=== PATIENT | male | born 1950 | race African-American/Black ===

== ENCOUNTER 2024-08-30 18:41 | Inpatient (IN) | payer MEDICARE, MEDICAID ==
[~2024-08-30] VITALS: Ht 167.6 cm; Wt 66.7 kg
[~2024-08-30 18:41] MED LIST: BUME2TAB34 PO; CARV12.545 PO; DIGO125T PO; EMPA25TA PO; GABA-1180 PO; ROSU20CA PO; SACU1TAB PO; TAMSULOSIN PO
[2024-08-30 19:18] LABS: BASOPHILS % 0.5 % (0.0-2.0); EOSINOPHILS % 0.1 % (0.0-5.0); HEMATOCRIT. 44.6 % (42.0-52.0); HEMOGLOBIN. 14.6 g/dL (14.0-18.0); LYMPHOCYTES % 17.6 % (20.0-50.0); MEAN CORPUSCULAR HEMOGLOBIN 28.1 pg (28.0-32.0); MEAN CORPUSCULAR HGB CONC 32.7 g/dL (31.0-37.0); MEAN CORPUSCULAR VOLUME 85.9 fL (80.0-94.0); MONOCYTES % 7.4 % (2.0-8.0); NEUTROPHILS % 74.4 % (40.0-76.0); PLATELET 160 x1000/uL (130-400); RED BLOOD CELL COUNT 5.19 mill/uL (4.7-6.1); RED CELL DISTRIBUTION WIDTH 16.5 % (11.6-14.6)
[2024-08-30 19:24] LABS: CALCIUM 9.9 mg/dL (8.7-10.4); CARBON DIOXIDE 16 mEq/L (21-32); CHLORIDE 105 mEq/L (98-107); SODIUM 128 mEq/L (136-145)
[2024-08-30 19:26] LABS: POTASSIUM 6.8 mEq/L (3.5-5.1)
[2024-08-30 19:27] LABS: INR 1.3; PROTHROMBIN TIME 13.4 sec (9.6-11.0)
[2024-08-30 19:29] LABS: GLUCOSE 147 mg/dL (70-105)
[2024-08-30 19:30] LABS: UREA NITROGEN BLOOD 79 mg/dL (9-23)
[2024-08-30 19:31] LABS: ALANINE AMINOTRANSFERASE 51 IU/L (10-49); ALBUMIN 4.3 g/dL (3.2-4.8); ASPARTATE AMINOTRANSFERASE 26 IU/L (<34)
[2024-08-30 19:32] LABS: BILIRUBIN DIRECT 0.4 mg/dL (<=3.0); BILIRUBIN TOTAL 0.7 mg/dL (0.1-1.0)
[2024-08-30 20:09] LABS: PROTEIN TOTAL 11.5 g/dL (6.0-8.3)
[2024-08-30 20:22] VITALS: PULSE 70; RESP 20; O2SAT 98
[2024-08-30] MEDS: ALBUTEROL (0.083%) 2.5MG/3ML NEB HHN ONE (20:22)
[2024-08-30] MEDS: FUROSEMIDE 100MG/10ML VIAL IV STA (20:35)
[2024-08-30] MEDS: CALCIUM CHLORIDE 1GM/10ML SYR IV ONE (20:36)
[2024-08-30] MEDS: SODIUM ZIRCONIUM CYCLOSILICATE 10GM/PACKET PO ONE (20:36)
[2024-08-30] MEDS: SODIUM BICARBONATE 8.4% 50MEQ/50ML SYR IV ONE (20:36)
[2024-08-30] MEDS: DEXTROSE 50% WATER 50ML SYRINGE IV ONE (20:39)
[2024-08-30] MEDS: INSULIN REGULAR (HUMULIN R) 1000UNITS/10ML VIAL IV ONE (20:40)
[2024-08-30 22:05] LABS: CLARITY URINE CLEAR (CLEAR); COLOR URINE YELLOW (YELLOW); GLUCOSE URINE TRACE (NEGATIVE); KETONES URINE NEGATIVE (NEGATIVE); LEUKOCYTE ESTERASE URINE NEGATIVE (NEGATIVE); NITRITE URINE NEGATIVE (NEGATIVE); OCCULT BLOOD URINE NEGATIVE (NEGATIVE); PROTEIN URINE TRACE (NEGATIVE); SPECIFIC GRAVITY URINE 1.011 (1.005-1.030); UROBILINOGEN URINE 0.2 E.U./dL (0.2-1.0)
[2024-08-30 22:21] LABS: BACTERIA URINE NONE SEEN; RBC URINE 0-2 /hpf (0-2); SQUAMOUS EPITHELIAL CELL URINE RARE /lpf (RARE/1+); WBC URINE NONE SEEN /hpf (0-2)
[2024-08-30] MEDS ORDERED: MAGNESIUM/ALUMINUM HYDROXIDE/SIMETHICONE 30ML UDC PO PRN (23:30)
[2024-08-30] MEDS ORDERED: ACETAMINOPHEN 325MG TABLET PO PRN (23:30)
[2024-08-30] MEDS ORDERED: CLONIDINE 0.1MG TABLET PO PRN (23:30)
[2024-08-30] MEDS ORDERED: GUAIFENESIN 200MG/10ML SUGAR FREE UDC PO PRN (23:30)
[2024-08-30] MEDS ORDERED: ONDANSETRON HCL 4MG/2ML INJ IV PRN (23:30)
[2024-08-30] MEDS ORDERED: DOCUSATE SODIUM 100MG CAPSULE PO PRN (23:30)
[2024-08-30] MEDS ORDERED: IPRATROPIUM/ALBUTEROL 0.5-3(2.5)MG/3ML NEB HHN PRN (23:30)
[2024-08-31] VITALS (7 sets, daily range): BP systolic 118–155; BP diastolic 75–81; PULSE 83–93; RESP 16; TEMP 36.1–36.8
[2024-08-31 02:43] LABS: AMMONIA 32 uMol/L (<32)
[2024-08-31] MEDS: ACETAMINOPHEN 325MG TABLET PO PRN (05:34)
[2024-08-31] MEDS ORDERED: SPIRONOLACTONE 50MG TABLET PO SCH (06:00)
[2024-08-31] MEDS: PANTOPRAZOLE 40MG DR TABLET PO SCH (06:45)
[2024-08-31] MEDS: BLOOD SUGAR DIAGNOSTIC STRIP TEST SCH (06:46)
[2024-08-31] MEDS: INSULIN LISPRO 100 UNITS/ML SUBCUT SCH (07:56)
[2024-08-31] MEDS ORDERED: LOSARTAN 50 MG TABLET PO SCH (09:00)
[2024-08-31] MEDS: FUROSEMIDE 20MG TABLET PO SCH (09:08)
[2024-08-31] MEDS: CARVEDILOL 6.25 MG TABLET PO SCH (09:08)
[2024-08-31] MEDS: ENOXAPARIN 30MG/0.3ML SYR SUBCUT SCH (09:09)
[2024-08-31 09:47] LABS: *AMPHETAMINES SCREEN URINE NEGATIVE (NEGATIVE); *BENZODIAZEPINES SCREEN URINE NEGATIVE (NEGATIVE)
[2024-08-31 09:48] LABS: *BARBITURATES SCREEN URINE NEGATIVE (NEGATIVE); *COCAINE SCREEN URINE NEGATIVE (NEGATIVE); CANNABINOID URINE SCREEN NEGATIVE (NEGATIVE); METHADONE URINE SCREEN NEGATIVE (NEGATIVE); OPIATES URINE SCREEN NEGATIVE (NEGATIVE); PHENCYCLIDINE URINE SCREEN NEGATIVE (NEGATIVE)
[2024-08-31 09:49] LABS: ECSTASY MDMA SCREEN URINE NEGATIVE (NEGATIVE)
[2024-08-31 14:22] LABS: SODIUM URINE RANDOM 69 mEq/L
[2024-08-31 15:35] LABS: OSMOLALITY URINE 442 mOsm/kg (500-850)
[2024-08-31 22:05] LABS: BASOPHILS % 0.1 % (0.0-2.0); EOSINOPHILS % 0.1 % (0.0-5.0); HEMATOCRIT. 43.4 % (42.0-52.0); HEMOGLOBIN. 14.2 g/dL (14.0-18.0); LYMPHOCYTES % 17.7 % (20.0-50.0); MEAN CORPUSCULAR HEMOGLOBIN 28.1 pg (28.0-32.0); MEAN CORPUSCULAR HGB CONC 32.6 g/dL (31.0-37.0); MEAN CORPUSCULAR VOLUME 86.2 fL (80.0-94.0); MEAN PLATELET VOLUME 8.3 fl (7.4-10.4); MONOCYTES % 9.1 % (2.0-8.0); PLATELET 165 x1000/uL (130-400); RED BLOOD CELL COUNT 5.04 mill/uL (4.7-6.1); RED CELL DISTRIBUTION WIDTH 16.8 % (11.6-14.6)
[2024-08-31 22:10] LABS: CARBON DIOXIDE 18 mEq/L (21-32)
[2024-08-31 22:11] LABS: CALCIUM 10.5 mg/dL (8.7-10.4)
[2024-08-31 22:14] LABS: CHLORIDE 103 mEq/L (98-107); SODIUM 130 mEq/L (136-145)
[2024-08-31 22:15] LABS: CREATININE 2.2 mg/dL (0.6-1.3); GLUCOSE 118 mg/dL (70-105); UREA NITROGEN BLOOD 87 mg/dL (9-23)
[2024-08-31 22:17] LABS: PHOSPHORUS 4.7 mg/dL (2.5-4.9)
[2024-08-31 22:20] LABS: THYROID STIMULATING HORMONE 2.67 uIU/mL (0.55-4.78)
[2024-08-31 22:30] LABS: LACTIC ACID 2.1 mmol/L (0.4-2.0); POTASSIUM 6.4 mEq/L (3.5-5.1)
[2024-08-31] MEDS: SODIUM ZIRCONIUM CYCLOSILICATE 10GM/PACKET PO SCH (23:05)
[2024-09-01] VITALS: TEMP 36.2
[2024-09-01] MEDS: SENNOSIDES/DOCUSATE SOD 8.6/50MG TABLET PO PRN (02:00)
[2024-09-01] MEDS ORDERED: ALBUTEROL (0.083%) 2.5MG/3ML NEB HHN SCH (03:45)
[2024-09-01 04:00] VITALS: TEMP 36.3
[2024-09-01] MEDS: CALCIUM CHLORIDE 1GM/10ML SYR IV SCH (04:08)
[2024-09-01] MEDS: DEXTROSE 50% WATER 50ML SYRINGE IV SCH (04:09)
[2024-09-01] MEDS: SODIUM CHLORIDE 0.9% 500 ML IV ONE (04:09)
[2024-09-01] MEDS: INSULIN REGULAR (HUMULIN R) 1000UNITS/10ML VIAL IV SCH (04:13)
[2024-09-01] MEDS: SODIUM BICARBONATE 8.4% 50MEQ/50ML SYR IV SCH (04:56)
[2024-09-01 08:00] VITALS: BP 127/77; TEMP 36.3
[2024-09-01] MEDS ORDERED: FUROSEMIDE 40MG/4ML VIAL IVP SCH (09:00)
[2024-09-01] MEDS: POLYETHYLENE GLYCOL 3350 (17GM) 1 DOSE PACK PO SCH (09:44)
[2024-09-01 12:00] VITALS: BP 113/75; PULSE 75; RESP 20; TEMP 35.7; O2SAT 93
[2024-09-01 16:00] VITALS: BP 129/63; PULSE 69; RESP 18; TEMP 35.9; O2SAT 94
[2024-09-01] MEDS: DEXTROSE 50% WATER 50ML SYRINGE IV PRN (19:55)
[2024-09-01 20:00] VITALS: BP 124/69; PULSE 76; RESP 20; TEMP 36.1; O2SAT 100
[2024-09-02] VITALS: BP 140/71; PULSE 71; RESP 18; TEMP 36.4; O2SAT 97
[2024-09-02 04:00] VITALS: BP 140/70; PULSE 78; RESP 18; TEMP 36.1; O2SAT 95
[2024-09-02 07:28] LABS: BASOPHILS % 0.2 % (0.0-2.0); EOSINOPHILS % 0.4 % (0.0-5.0); HEMATOCRIT. 40.4 % (42.0-52.0); HEMOGLOBIN. 13.2 g/dL (14.0-18.0); LYMPHOCYTES % 17.4 % (20.0-50.0); MEAN CORPUSCULAR HEMOGLOBIN 28.2 pg (28.0-32.0); MEAN CORPUSCULAR HGB CONC 32.7 g/dL (31.0-37.0); MEAN CORPUSCULAR VOLUME 86.3 fL (80.0-94.0); MEAN PLATELET VOLUME 8.2 fl (7.4-10.4); MONOCYTES % 12.2 % (2.0-8.0); NEUTROPHILS % 69.8 % (40.0-76.0); PLATELET 159 x1000/uL (130-400); RED BLOOD CELL COUNT 4.68 mill/uL (4.7-6.1); RED CELL DISTRIBUTION WIDTH 16.4 % (11.6-14.6); WHITE BLOOD COUNT 8.9 x1000/uL (4.5-11.0)
[2024-09-02 08:00] VITALS: PULSE 76; RESP 18
[2024-09-02] MEDS: TAMSULOSIN HCL 0.4MG SR CAPSULE PO SCH (09:22)
[2024-09-02 10:08] LABS: *CREATININE RANDOM URINE 58.7 mg/dL (Not Estab.); MICROALBUMIN RANDOM URINE 51.4 ug/mL (Not Estab.)
[2024-09-02 12:00] VITALS: PULSE 71; RESP 16
[2024-09-02 16:00] VITALS: PULSE 71; RESP 16
[2024-09-02] MEDS: LACTULOSE 20G/30ML UDC PO NR (19:31)
[2024-09-03] VITALS: BP 107/70; PULSE 80; RESP 18; TEMP 36.2; O2SAT 98
[2024-09-03 04:00] VITALS: BP 120/83; PULSE 79; RESP 20; TEMP 36.1; O2SAT 97
[2024-09-03 08:00] VITALS: BP 133/80; PULSE 58; RESP 18; TEMP 36.2; O2SAT 97
[2024-09-03 08:37] VITALS: PULSE 58
== END 2024-09-03 15:45 | DRG 445 ==
LOC: ER 18:41 → 5EST 21:03 → ENRESERV 21:57 → 8WST 09-01 09:55
PROVIDERS: ADMIT Internal Medicine; ATTEND Internal Medicine
DX: K81.9 Cholecystitis, unspecified (principal); E87.1 Hypo-osmolality and hyponatremia; R18.8 Other ascites; I13.0 Hypertensive heart and chronic kidney disease with heart failure and stage 1 through stage 4 chronic kidney disease, or unspecified chronic kidney disease; N17.9 Acute kidney failure, unspecified; E87.20 Acidosis, unspecified; K74.60 Unspecified cirrhosis of liver; K29.70 Gastritis, unspecified, without bleeding; F10.20 Alcohol dependence, uncomplicated; E11.22 Type 2 diabetes mellitus with diabetic chronic kidney disease; D64.9 Anemia, unspecified; I50.9 Heart failure, unspecified; N18.9 Chronic kidney disease, unspecified; K21.9 Gastro-esophageal reflux disease without esophagitis; E86.0 Dehydration; E87.5 Hyperkalemia; I25.10 Atherosclerotic heart disease of native coronary artery without angina pectoris; I45.10 Unspecified right bundle-branch block; K59.00 Constipation, unspecified; Z91.199 Patient's noncompliance with other medical treatment and regimen due to unspecified reason; Z95.1 Presence of aortocoronary bypass graft; Z79.899 Other long term (current) drug therapy; Z79.84 Long term (current) use of oral hypoglycemic drugs
CPT/HCPCS: 36415; 71045; 74176; 76705; 80048; 80076; 80305; 81003; 82043; 82140; 82533; 82570; 82962; 83036; 83605; 83735; 83880; 83930; 83935; 84100; 84300; 84443; 85025; 93005; 94070; 94640; 94760; 96374; 96375; 98960; 99285; J1650; J1815; J1940; J3490

== ENCOUNTER 2024-09-10 14:07 | Inpatient (IN) | payer MEDICARE, MEDICAID ==
[~2024-09-10] VITALS: Ht 157.5 cm; Wt 77.1 kg
[2024-09-10 16:12] LABS: BASOPHILS % 0.6 % (0.0-2.0); EOSINOPHILS % 1.7 % (0.0-5.0); HEMATOCRIT. 39.3 % (42.0-52.0); HEMOGLOBIN. 12.8 g/dL (14.0-18.0); LYMPHOCYTES % 31.7 % (20.0-50.0); MEAN CORPUSCULAR HEMOGLOBIN 27.9 pg (28.0-32.0); MEAN CORPUSCULAR HGB CONC 32.6 g/dL (31.0-37.0); MEAN CORPUSCULAR VOLUME 85.5 fL (80.0-94.0); MEAN PLATELET VOLUME 7.7 fl (7.4-10.4); MONOCYTES % 11.4 % (2.0-8.0); NEUTROPHILS % 54.6 % (40.0-76.0); PLATELET 198 x1000/uL (130-400); RED BLOOD CELL COUNT 4.59 mill/uL (4.7-6.1); WHITE BLOOD COUNT 6.4 x1000/uL (4.5-11.0)
[2024-09-10 16:29] LABS: CARBON DIOXIDE 19 mEq/L (21-32); CHLORIDE 106 mEq/L (98-107); POTASSIUM 5.7 mEq/L (3.5-5.1); SODIUM 132 mEq/L (136-145)
[2024-09-10 16:30] LABS: CALCIUM 9.3 mg/dL (8.7-10.4)
[2024-09-10 16:35] LABS: GLUCOSE 95 mg/dL (70-105); UREA NITROGEN BLOOD 51 mg/dL (9-23)
[2024-09-10 16:36] LABS: TROPONIN I HIGH SENSITIVITY 33 ng/L (3.0-53)
[2024-09-10 16:37] LABS: CREATININE 1.4 mg/dL (0.6-1.3)
[2024-09-10 18:00] VITALS: BP 127/70; PULSE 85; RESP 17; TEMP 36.6; O2SAT 97
[2024-09-10] MEDS: SODIUM POLYSTYRENE SULFONATE 15 G/60 ML BOT PO NR (18:22)
[2024-09-10 20:00] VITALS: BP 112/46; PULSE 66; RESP 18; TEMP 36.6; O2SAT 99
[2024-09-10 20:43] LABS: TROPONIN I HIGH SENSITIVITY 33 ng/L (3.0-53)
[2024-09-10] MEDS ORDERED: ACETAMINOPHEN 325MG TABLET PO PRN (20:45)
[2024-09-10] MEDS ORDERED: DOCUSATE SODIUM 100MG CAPSULE PO PRN (20:45)
[2024-09-10] MEDS ORDERED: ONDANSETRON HCL 4MG/2ML INJ IV PRN (20:45)
[2024-09-10] MEDS ORDERED: IPRATROPIUM/ALBUTEROL 0.5-3(2.5)MG/3ML NEB HHN PRN (20:45)
[2024-09-10] MEDS ORDERED: CLONIDINE 0.1MG TABLET PO PRN (20:45)
[2024-09-10] MEDS ORDERED: MAGNESIUM/ALUMINUM HYDROXIDE/SIMETHICONE 30ML UDC PO PRN (20:45)
[2024-09-10] MEDS ORDERED: GUAIFENESIN 200MG/10ML SUGAR FREE UDC PO PRN (20:45)
[2024-09-10 20:57] VITALS: BP 111/68; PULSE 89; RESP 20; TEMP 36.4
[2024-09-10 21:44] LABS: IRON 53 ug/dL (65-175)
[2024-09-10 21:45] LABS: ETHANOL BLOOD < 10 mg/dL (<10); TRIGLYCERIDE 105 mg/dL (0-150)
[2024-09-10 21:46] LABS: ALANINE AMINOTRANSFERASE 37 IU/L (10-49); ALBUMIN 3.9 g/dL (3.2-4.8); ASPARTATE AMINOTRANSFERASE 31 IU/L (<34); LDL CHOLESTEROL 98 mg/dL (5-100)
[2024-09-10 21:47] LABS: BILIRUBIN DIRECT 0.3 mg/dL (<=3.0); BILIRUBIN TOTAL 0.4 mg/dL (0.1-1.0); HDL CHOLESTEROL 23 mg/dL (>55); PHOSPHORUS 4.3 mg/dL (2.5-4.9); TOTAL IRON BINDING CAPACITY 230 ug/dl (250-425)
[2024-09-10 21:49] LABS: THYROID STIMULATING HORMONE 1.63 uIU/mL (0.55-4.78)
[2024-09-10 22:02] LABS: CHOLESTEROL 131 mg/dL (<200)
[2024-09-10 22:05] LABS: T4 FREE 1.24 ng/dL (0.89-1.76)
[2024-09-10 22:17] LABS: PROTEIN TOTAL 9.2 g/dL (6.0-8.3)
[2024-09-10] MEDS ORDERED: DEXTROSE 50% WATER 50ML SYRINGE IV PRN (23:30)
[2024-09-11] VITALS (7 sets, daily range): BP systolic 116–146; BP diastolic 56–82; PULSE 62–85; RESP 16–20; TEMP 36.2–36.7; O2SAT 94–99
[2024-09-11 00:20] LABS: D-DIMER 2.67 mg/L FEU (<0.50); INR 1.2; PROTHROMBIN TIME 12.4 sec (9.6-11.0)
[2024-09-11 00:32] LABS: POTASSIUM 5.3 mEq/L (3.5-5.1)
[2024-09-11 00:34] LABS: CALCIUM 8.9 mg/dL (8.7-10.4)
[2024-09-11 00:38] LABS: CORTISOL 11.4 ucg/dL; CREATININE 1.4 mg/dL (0.6-1.3)
[2024-09-11 00:39] LABS: CREATINE KINASE MB FRACTION 2.8 ng/mL (0.5-3.6)
[2024-09-11 00:44] LABS: FERRITIN 460 ng/mL (22-322)
[2024-09-11 00:55] LABS: HEPATITIS B SURFACE ANTIGEN NEGATIVE (Negative)
[2024-09-11 01:15] LABS: HEPATITIS A AB IGM NEGATIVE (Negative)
[2024-09-11 01:16] LABS: HEPATITIS B CORE AB IGM NEGATIVE (Negative); HEPATITIS C AB NON REACTIVE (Neg) (Negative)
[2024-09-11] MEDS ORDERED: SODIUM POLYSTYRENE SULFONATE 15 G/60 ML BOT PO NR (04:15)
[2024-09-11] MEDS: GUAIFENESIN-DM 200MG-20MG/10ML UDC PO SCH (04:15)
[2024-09-11] MEDS: BLOOD SUGAR DIAGNOSTIC STRIP TEST SCH (07:10)
[2024-09-11] MEDS: INSULIN LISPRO 100 UNITS/ML SUBCUT SCH (07:50)
[2024-09-11] MEDS: FUROSEMIDE 40MG/4ML VIAL IVP SCH (08:39)
[2024-09-11] MEDS: PANTOPRAZOLE 40MG DR TABLET PO SCH (09:06)
[2024-09-11] MEDS: EMPAGLIFLOZIN 10MG TABLET PO SCH (09:06)
[2024-09-11] MEDS: ENOXAPARIN 40MG/0.4ML SYR SUBCUT SCH (09:07)
[2024-09-11] MEDS ORDERED: CARV6.2548 PO (18:07)
[2024-09-11] MEDS ORDERED: TAMS-54 PO (18:07)
[2024-09-11] MEDS ORDERED: PANT40TA51 PO (18:07)
[2024-09-11] MEDS ORDERED: FURO20TA4 PO (18:07)
[2024-09-11] MEDS ORDERED: CLON0.1T PO (18:09)
[2024-09-11] MEDS ORDERED: IPRA3AMP9 INH (18:09)
[2024-09-11] MEDS ORDERED: ONDA4TAB50 PO (18:09)
[2024-09-11] MEDS ORDERED: INSU100I53 SUBCUT (18:09)
[2024-09-11] MEDS ORDERED: ENOX30DI4 SUBCUT (18:09)
[2024-09-11 21:43] LABS: MEAN CORPUSCULAR HEMOGLOBIN 28.4 pg (28.0-32.0); MEAN CORPUSCULAR HGB CONC 33.4 g/dL (31.0-37.0); MEAN CORPUSCULAR VOLUME 84.8 fL (80.0-94.0); PLATELET 210 x1000/uL (130-400); RED BLOOD CELL COUNT 4.95 mill/uL (4.7-6.1); RED CELL DISTRIBUTION WIDTH 15.8 % (11.6-14.6); WHITE BLOOD COUNT 7.1 x1000/uL (4.5-11.0)
[2024-09-11 21:50] LABS: CHLORIDE 101 mEq/L (98-107); POTASSIUM 5.7 mEq/L (3.5-5.1); SODIUM 129 mEq/L (136-145)
[2024-09-11 21:51] LABS: CALCIUM 9.7 mg/dL (8.7-10.4); CARBON DIOXIDE 22 mEq/L (21-32)
[2024-09-11 21:56] LABS: CREATININE 1.5 mg/dL (0.6-1.3); GLUCOSE 100 mg/dL (70-105); UREA NITROGEN BLOOD 44 mg/dL (9-23)
[2024-09-11 21:58] LABS: CREATINE KINASE MB FRACTION 3.5 ng/mL (0.5-3.6)
[2024-09-11 21:59] LABS: AMMONIA 20 uMol/L (<32)
[2024-09-12] VITALS: BP 106/57; PULSE 82; RESP 20; TEMP 36.4; O2SAT 97
[2024-09-12] MEDS: ACETAMINOPHEN 325MG TABLET PO PRN (02:48)
[2024-09-12 04:00] VITALS: BP 117/66; PULSE 64; RESP 20; TEMP 36.3; O2SAT 98
[2024-09-12] MEDS: ENOXAPARIN 30MG/0.3ML SYR SUBCUT SCH (08:58)
[2024-09-12] MEDS ORDERED: SODIUM POLYSTYRENE SULFONATE 15 G/60 ML BOT PO ONE (10:00)
[2024-09-12] MEDS ORDERED: ALBUTEROL (0.083%) 2.5MG/3ML NEB HHN SCH (10:15)
[2024-09-12] MEDS: SODIUM ZIRCONIUM CYCLOSILICATE 10GM/PACKET PO SCH (10:30)
[2024-09-12 12:00] VITALS: BP 116/70; PULSE 79; RESP 18; TEMP 36.5; O2SAT 95
[2024-09-12 12:57] VITALS: BP 116/70; PULSE 79; TEMP 97.7; O2SAT 95
[2024-09-13] MEDS ORDERED: ENOXAPARIN 40MG/0.4ML SYR SUBCUT SCH (09:00)
[2024-09-13] MEDS ORDERED: FAMOTIDINE 20MG TABLET PO SCH (09:00)
== END 2024-09-12 15:00 | DRG 303 ==
LOC: ER 14:07 → EDBEDREQ 17:19 → EDBEDREQTM 17:19 → ENRESERV 17:40 → 6WST 17:44
PROVIDERS: ADMIT Internal Medicine; ATTEND Internal Medicine
DX: I25.110 Atherosclerotic heart disease of native coronary artery with unstable angina pectoris (principal); I50.22 Chronic systolic (congestive) heart failure; I13.0 Hypertensive heart and chronic kidney disease with heart failure and stage 1 through stage 4 chronic kidney disease, or unspecified chronic kidney disease; E87.1 Hypo-osmolality and hyponatremia; N17.9 Acute kidney failure, unspecified; E87.20 Acidosis, unspecified; K21.9 Gastro-esophageal reflux disease without esophagitis; E87.5 Hyperkalemia; D64.9 Anemia, unspecified; N18.2 Chronic kidney disease, stage 2 (mild); E11.22 Type 2 diabetes mellitus with diabetic chronic kidney disease; K74.60 Unspecified cirrhosis of liver; F03.90 Unspecified dementia, unspecified severity, without behavioral disturbance, psychotic disturbance, mood disturbance, and anxiety; Z91.199 Patient's noncompliance with other medical treatment and regimen due to unspecified reason; Z79.84 Long term (current) use of oral hypoglycemic drugs; Z79.899 Other long term (current) drug therapy; Z95.1 Presence of aortocoronary bypass graft; Z95.2 Presence of prosthetic heart valve
CPT/HCPCS: 36415; 71045; 80048; 80061; 80076; 80320; 82140; 82533; 82550; 82553; 82728; 82962; 83036; 83540; 83550; 83735; 83880; 83930; 84100; 84439; 84443; 84484; 85025; 85027; 85379; 86705; 86709; 87340; 93005; 93306; 99285; A4606; J1650; J1938; G0480

== ENCOUNTER 2024-11-14 11:00 | Inpatient (IN) | payer MEDICARE, MEDICAID ==
[~2024-11-14] VITALS: Ht 170.2 cm; Wt 68.9 kg
[~2024-11-14 11:00] MED LIST changes: -BUME2TAB34 PO; -CARV12.545 PO; +CARV6.2548 PO; +CLON0.1T PO; -DIGO125T PO; -EMPA25TA PO; +ENOX30DI4 SUBCUT; +FURO20TA4 PO; -GABA-1180 PO; +INSU100I53 SUBCUT; +IPRA3AMP9 INH; +ONDA4TAB50 PO; +PANT40TA51 PO; -ROSU20CA PO; -SACU1TAB PO; +TAMS-54 PO; -TAMSULOSIN PO
[2024-11-14] MEDS ORDERED: AZITHROMYCIN 250 MG in DEXT 5% WATER 250 ML IV SCH (12:00)
[2024-11-14 12:41] LABS: BASOPHILS % 0.4 % (0.0-2.0); EOSINOPHILS % 3.4 % (0.0-5.0); HEMATOCRIT. 42.5 % (42.0-52.0); HEMOGLOBIN. 13.9 g/dL (14.0-18.0); LYMPHOCYTES % 32.9 % (20.0-50.0); MEAN PLATELET VOLUME 7.7 fl (7.4-10.4); MONOCYTES % 9.6 % (2.0-8.0); NEUTROPHILS % 53.7 % (40.0-76.0); PLATELET 188 x1000/uL (130-400); RED BLOOD CELL COUNT 4.79 mill/uL (4.7-6.1); RED CELL DISTRIBUTION WIDTH 15.1 % (11.6-14.6)
[2024-11-14] MEDS: IPRATROPIUM/ALBUTEROL 0.5-3(2.5)MG/3ML NEB HHN ONE (13:00)
[2024-11-14 13:06] LABS: CREATININE 1.3 mg/dL (0.6-1.3)
[2024-11-14 13:07] LABS: UREA NITROGEN BLOOD 59 mg/dL (9-23)
[2024-11-14 13:08] LABS: TROPONIN I HIGH SENSITIVITY 29 ng/L (3.0-53)
[2024-11-14] MEDS: SODIUM CHLORIDE 0.9% 500 ML IV ONE (13:14)
[2024-11-14] MEDS: SODIUM CHLORIDE 0.9% 1,000 ML IV ONE (13:14)
[2024-11-14] MEDS: SODIUM CHLORIDE 0.9% 250 ML IV ONE (13:14)
[2024-11-14] MEDS: AZITHROMYCIN 500MG/250ML 250 ML IV SCH (13:16)
[2024-11-14] MEDS: PREDNISONE 20MG TABLET PO ONE (13:16)
[2024-11-14] MEDS: CEFTRIAXONE 1GM/50ML 50 ML IV ONE (14:21)
[2024-11-14 14:50] VITALS: PULSE 86; RESP 16; O2SAT 97
[2024-11-14] MEDS: IPRATROPIUM/ALBUTEROL 0.5-3(2.5)MG/3ML NEB HHN NR (14:50)
[2024-11-14 15:32] LABS: CLARITY URINE CLEAR (CLEAR); COLOR URINE YELLOW (YELLOW); GLUCOSE URINE NEGATIVE (NEGATIVE); KETONES URINE NEGATIVE (NEGATIVE); LEUKOCYTE ESTERASE URINE NEGATIVE (NEGATIVE); NITRITE URINE NEGATIVE (NEGATIVE); OCCULT BLOOD URINE NEGATIVE (NEGATIVE); PH URINE 5.0 (4.5-8.0); PROTEIN URINE NEGATIVE (NEGATIVE); SPECIFIC GRAVITY URINE 1.013 (1.005-1.030); UROBILINOGEN URINE 0.2 E.U./dL (0.2-1.0)
[2024-11-14 18:00] VITALS: BP 110/65; PULSE 86; RESP 17; TEMP 36.7516
[2024-11-14] MEDS ORDERED: ONDANSETRON HCL 4MG/2ML INJ IV PRN (18:45)
[2024-11-14] MEDS ORDERED: ACETAMINOPHEN 325MG TABLET PO PRN ×2 (18:45)
[2024-11-14] MEDS ORDERED: IPRATROPIUM/ALBUTEROL 0.5-3(2.5)MG/3ML NEB HHN PRN (18:45)
[2024-11-14] MEDS ORDERED: DOCUSATE SODIUM 100MG CAPSULE PO PRN (18:45)
[2024-11-14] MEDS ORDERED: CLONIDINE 0.1MG TABLET PO PRN (18:45)
[2024-11-14 20:00] VITALS: BP 115/67; PULSE 90; RESP 17; TEMP 36.3; O2SAT 98
[2024-11-15] VITALS (7 sets, daily range): BP systolic 110–122; BP diastolic 56–69; PULSE 61–84; RESP 15–20; TEMP 36.2–36.7; O2SAT 94–100
[2024-11-15] MEDS: IPRATROPIUM/ALBUTEROL 0.5-3(2.5)MG/3ML NEB HHN SCH (00:20)
[2024-11-15 14:31] LABS: *AMPHETAMINES SCREEN URINE NEGATIVE (NEGATIVE); *BARBITURATES SCREEN URINE NEGATIVE (NEGATIVE); *BENZODIAZEPINES SCREEN URINE NEGATIVE (NEGATIVE); *COCAINE SCREEN URINE NEGATIVE (NEGATIVE); CANNABINOID URINE SCREEN NEGATIVE (NEGATIVE); ECSTASY MDMA SCREEN URINE NEGATIVE (NEGATIVE); METHADONE URINE SCREEN NEGATIVE (NEGATIVE); OPIATES URINE SCREEN NEGATIVE (NEGATIVE); PHENCYCLIDINE URINE SCREEN NEGATIVE (NEGATIVE)
[2024-11-15] MEDS: CEFTRIAXONE 1GM/50ML 50 ML IV SCH (14:31)
[2024-11-15] MEDS: ENOXAPARIN 40MG/0.4ML SYR SUBCUT SCH (23:36)
[2024-11-16] VITALS (10 sets, daily range): BP systolic 103–121; BP diastolic 58–74; PULSE 61–92; RESP 18–23; TEMP 36.1–37.3; O2SAT 96–100
[2024-11-16] MEDS: PANTOPRAZOLE SODIUM 40 MG/VIAL IV SCH (08:42)
[2024-11-16] MEDS: FUROSEMIDE 40MG/4ML VIAL IVP SCH (08:42)
[2024-11-17] MEDS ORDERED: AZITHROMYCIN 500 MG TABLET PO SCH (09:00)
== END 2024-11-16 21:26 | DRG 291 ==
LOC: ER 11:00 → 7EST 17:05 → EDBEDREQSVC 17:08 → EDBEDREQ 17:08 → EDBEDREQTM 17:08 → ENRESERV 17:13
PROVIDERS: ADMIT Internal Medicine; ATTEND Internal Medicine
DX: I13.0 Hypertensive heart and chronic kidney disease with heart failure and stage 1 through stage 4 chronic kidney disease, or unspecified chronic kidney disease (principal); J18.9 Pneumonia, unspecified organism; R06.03 Acute respiratory distress; I50.9 Heart failure, unspecified; F10.21 Alcohol dependence, in remission; E11.22 Type 2 diabetes mellitus with diabetic chronic kidney disease; K21.9 Gastro-esophageal reflux disease without esophagitis; N18.9 Chronic kidney disease, unspecified; F43.10 Post-traumatic stress disorder, unspecified; K76.9 Liver disease, unspecified
CPT/HCPCS: 36415; 71045; 73130; 74176; 80048; 80305; 80320; 81003; 83605; 83880; 84484; 85025; 93005; 94070; 94640; 94664; 97162; 99285; J0456; J0696; J1650; J1938; J2470; J7030; J7040; J7050; J7060; J7512; G0480